=== PATIENT | female | born 1970 | race Caucasian/White ===

== ENCOUNTER 2017-02-12 13:30 | Emergency (ER) | payer BC ==
[2017-02-12 14:03] VITALS: BP 145/73
--- NOTE | 2017-02-12 14:18 | UC ---
Complaint Female HPI - HPI Summary HPI Summary: Pt states woke during night feeling warm, mild suprapubic discomfort, and feeling "shaky" Pt states this is her typical symptoms with a UTI. No fever. No cp, sob. No nausea, vomiting. Slight decreased appetitie. No analgesia. urine dark - no dysuria. mild urgency. no back pain Pt's medications reviewed this visit - History Of Current Complaint Chief Complaint: UCGeneralIllness Stated Complaint: POSSIBLE BLADDER INFXN Time Seen by Provider: 02/12/17 14:17 Hx Obtained From: Patient ?: No Onset/Duration: Gradual Onset Severity Initially: Mild Severity Currently: Mild Associated Signs And Symptoms: Positive: Nausea - Allergies/Home Medications Allergies/Adverse Reactions: Allergies Allergy/AdvReac Type Severity Reaction Status Date / Time Sulfa Antibiotics Allergy Hives Verified 02/12/17 13:59 Home Medications: Home Medications Valacyclovir HCl PRN 02/12/17 [History] PMH/Surg Hx/FS Hx/Imm Hx Previously Healthy: Yes - Surgical History Surgical History: Yes Surgery Procedure, Year, and Place: HYSTERECTOMY 2011; C SECTION X2, METAL IN EYES-REMOVED, CYST REMOVED - Family History Known Family History: Positive: Hypertension - Social History Occupation: Employed Full-time Lives: With Family Alcohol Use: Rare Substance Use Type: None Smoking Status (MU): Never Smoked Tobacco - Immunization History Most Recent Influenza Vaccination: none Review of Systems Constitutional: Other - shaky Skin: Negative Gastrointestinal: Abdominal Pain - mild suprapubic Genitourinary: Urgency Motor: Negative All Other Systems Reviewed And Are Negative: Yes Physical Exam Triage Information Reviewed: Yes Appearance: Well-Appearing, No Pain Distress, Well-Nourished Vital Signs: Initial Vital Signs Temp 98.6 F 02/12/17 14:00 Pulse 76 02/12/17 14:00 Resp 16 02/12/17 14:00 BP 145/73 02/12/17 14:00 Pulse Ox 98 02/12/17 14:00 Vital Signs Reviewed: Yes Eye Exam: Normal Eyes: Positive: Conjunctiva Clear ENT Exam: Normal ENT: Positive: Normal ENT inspection, Hearing grossly normal Dental Exam: Normal Neck exam: Normal Neck: Positive: Supple, Nontender Respiratory Exam: Normal Respiratory: Positive: Chest non-tender, Lungs clear, Normal breath sounds, No respiratory distress, No accessory muscle use Cardiovascular Exam: Normal Cardiovascular: Positive: RRR, No Murmur Abdominal Exam: Normal Abdomen Description: Positive: Nontender, No Organomegaly, Soft. Negative: CVA Tenderness (R), CVA Tenderness (L) Musculoskeletal Exam: Normal Neurological Exam: Normal Psychological Exam: Normal Skin Exam: Normal Complaint Female Dx - Course Course Of Treatment: Pt presents with feeling shaky, mild nausea and fatigue. Pt reports typical presentation for UTI. reviewed urine results with pt. Will culture. start macrobid. hydrate. return precautions discussed. Pt in agreement with plan - Differential Dx/Diagnosis Provider Diagnoses: urgency. likley UTI Discharge - Discharge Plan Condition: Stable Disposition: HOME Prescriptions: Nitrofurantoin Monohyd Macro [Macrobid] 100 mg PO BID #14 cap Patient Education Materials: Urinary Tract Infection in Women (ED) Referrals: Kriss Weiner MD [Primary Care Provider] - Additional Instructions: - stay well hydrated - drink plenty of non-alcoholic, non caffinated beverages - your urine will be further tested - if you require any changes to your treatment, we will contact you - this usually take 2 days - Take antibiotics as prescribed until gone - If you start to feel ill, have any questions or concerns, contact your doctor or go directly to the emergency department.
== END 2017-02-12 14:35 | disposition home or self-care (01) ==
LOC: UCEAST 13:30
DX: R39.15 Urgency of urination (principal); Z88.2 Allergy status to sulfonamides
CPT/HCPCS: 81003; 87077; 87086; 87186; 99212; G0463